=== PATIENT | male | born 1995 | race Native Hawaiian/Other Pacific Islander ===

== ENCOUNTER 2017-10-23 01:43 | Emergency (ER) | payer SELFPAY ==
[~2017-10-23] VITALS: Ht 165.1 cm; Wt 70.0 kg
[2017-10-23 01:46] VITALS: BP 111/70; PULSE 81; RESP 12; O2SAT 99
[2017-10-23] MEDS ORDERED: METOCLOPRAMIDE INJ 10 MG in SODIUM CHLORIDE 0.9% INJ 50 ML IV ONE (02:00)
[2017-10-23] MEDS ORDERED: NALOXONE HCL 0.4 MG/ML AMP IV PUSH PRN (02:00)
[2017-10-23] MEDS ORDERED: SODIUM CHLOR 0.9% 1000 ML INJ 1,000 ML IV ONE (02:00)
--- NOTE | 2017-10-23 02:04 | PD ---
HPI Chief Complaint: Alcohol/Drug Intoxication Time Seen by Provider: 01:50 Travel History International Travel<30 days: No Contact w/Intl Traveler<30days: No Traveled to known affect area: No History of Present Illness HPI 22yo M was dropped off by his friends after drinking alcohol at [employer]. As per triage note, " he was drinking at [employer] and became unresponsive at the club after drinking a bunch of alcohol". Pt was initially not responding but after sternal rub, started nodding his eye and did open his eyes. Moves all extremities but clearly very intoxicated. I did try narcan 0.4mg initially but not much response. This is likely mainly alcohol intoxication. No signs of trauma. [facility] Social History Alcohol Use: Yes Tobacco Use: Yes Substance Use: No Allergies-Medications (Allergen,Severity, Reaction): Coded Allergies: No Known Allergies (Unverified , 10/23/17) Review of Systems Except as stated in HPI: all other systems reviewed are Neg Physical Exam Narrative GENERAL: 22yo M intoxicated. SKIN: Focused skin assessment warm/dry. HEAD: Atraumatic. Normocephalic. EYES: Pupils equal and round 4mm bilaterally. ENT: No nasal bleeding or discharge. Mucous membranes pink and moist. NECK: Trachea midline. No JVD. CARDIOVASCULAR: Regular rate and rhythm. No murmur appreciated. RESPIRATORY: No accessory muscle use. Clear to auscultation. Breath sounds equal bilaterally. GASTROINTESTINAL: Abdomen soft, non-tender, nondistended. MUSCULOSKELETAL: No obvious deformities. No clubbing. No cyanosis. No edema. NEUROLOGICAL: Intoxicated but arousable with sternal rub. Moves extremities and nods head. Data Data Last Documented VS Vital Signs Date Time Temp Pulse Resp B/P (MAP) Pulse Ox O2 Delivery O2 Flow Rate FiO2 10/23/17 01:46 81 12 111/70 (84) [address] Brain W/O Iv Contrast(Rout) (10/23/17 ) Complete Blood Count With Diff (10/23/17 01:50) Basic Metabolic Panel (Bmp) (10/23/17 01:50) Alcohol (Ethanol) (10/23/17 01:50) Sodium Chlor 0.9% 1000 Ml Inj (Ns 1000 M (10/23/17 02:00) Metoclopramide Inj (Reglan Inj) (10/23/17 02:00) Chest, Single Ap (10/23/17 ) Naloxone Inj (Narcan Inj) (10/23/17 02:00) Thiamine Inj (Thiamine Inj) (10/23/17 03:15) Labs Laboratory Tests Test 10/23/17 01:55 White Blood Count 11.8 TH/MM3 Red Blood Count 5.52 MIL/MM3 Hemoglobin 14.8 GM/DL Hematocrit 44.1 % Mean Corpuscular Volume 79.9 FL Mean Corpuscular Hemoglobin 26.7 PG Mean Corpuscular Hemoglobin Concent 33.4 % Red Cell Distribution Width 14.4 % Platelet Count 286 TH/MM3 Mean Platelet Volume 6.7 FL Neutrophils (%) (Auto) 67.5 % Lymphocytes (%) (Auto) 23.7 % Monocytes (%) (Auto) 4.7 % Eosinophils (%) (Auto) 3.0 % Basophils (%) (Auto) 1.1 % Neutrophils # (Auto) 7.9 TH/MM3 Lymphocytes # (Auto) 2.8 TH/MM3 Monocytes # (Auto) 0.6 TH/MM3 Eosinophils # (Auto) 0.4 TH/MM3 Basophils # (Auto) 0.1 TH/MM3 CBC Comment DIFF FINAL Differential Comment Blood Urea Nitrogen 7 MG/DL Creatinine 0.86 MG/DL Random Glucose 124 MG/DL Calcium Level 8.1 MG/DL Sodium Level 142 MEQ/L Potassium Level 3.6 MEQ/L Chloride Level 106 MEQ/L Carbon Dioxide Level 27.3 MEQ/L Anion Gap 9 MEQ/L Estimat Glomerular Filtration Rate 111 ML/MIN Ethyl Alcohol Level 272 MG/DL [facility] Medical Decision Making Medical Screen Exam Complete: Yes Emergency Medical Condition: Yes Differential Diagnosis Alcohol intoxication vs. ICH vs. dehydration vs. polysubstance use Narrative Course 22yo M brought in by friends after drinking at [employer]. Pt was initially not responding and given narcan which didnt have much response. Pt then opened his eyes and started nodding and moving extremities. Still not talking but more responsive. Labs reviewed, WBC 11.8. H/H normal. BMP unremarkable. Blood alcohol elevated at 272. Pt had episode of vomiting here. Pt was given reglan , NS IVF and thiamine. CXR negative. CT brain showed normal examination. Will allow pt to sober up in the ED. Diagnosis Primary Impression: Alcohol intoxication Qualified Codes: F10.920 - Alcohol use, unspecified with intoxication, uncomplicated Patient Instructions: General Instructions Departure Forms: Tests/Procedures Additional Instructions: Please follow up with your primary care physician in 2-3 days. Return to the ED if symptoms worsen. Med/Other Pt SpecificInfo: No Change to Meds Disposition: 01 DISCHARGE HOME Condition: Stable Donna Mckee DO October 23, 2017 02:04
[2017-10-23 02:05] LABS: AUTOMATED NEUTROPHIL # 7.9 TH/MM3 (1.8-7.7); BASOPHIL # 0.1 TH/MM3 (0-0.2); BASOPHIL % 1.1 % (0.0-2.0); EOSINOPHIL # 0.4 TH/MM3 (0-0.4); HEMATOCRIT 44.1 % (39.0-51.0); HEMOGLOBIN 14.8 GM/DL (13.0-17.0); LYMPH % 23.7 % (9.0-44.0); LYMPHOCYTE # 2.8 TH/MM3 (1.0-4.8); MEAN CELL VOLUME 79.9 FL (80.0-100.0); MEAN CORPUSCULAR HEMOGLOBIN 26.7 PG (27.0-34.0); MEAN CORPUSCULAR HGB CONC 33.4 % (32.0-36.0); MEAN PLATELET VOLUME 6.7 FL (7.0-11.0); MONO % 4.7 % (0.0-8.0); MONOCYTE # 0.6 TH/MM3 (0-0.9); NEUT % 67.5 % (16.0-70.0); PLATELET COUNT 286 TH/MM3 (150-450); RED BLOOD COUNT 5.52 MIL/MM3 (4.50-5.90); RED CELL DISTRIBUTION WIDTH 14.4 % (11.6-17.2); WHITE BLOOD COUNT 11.8 TH/MM3 (4.0-11.0)
--- NOTE | 2017-10-23 02:21 | RADRPT ---
EXAM DATE/TIME: 10/23/2017 01:56 [facility] COMPARISON: No previous studies available for comparison. INDICATIONS : Vomiting. MEDICAL HISTORY : None. SURGICAL HISTORY : None. ENCOUNTER: Initial ACUITY: 1 day PAIN SCORE: Non-responsive. LOCATION: Bilateral chest FINDINGS: A single view of the chest demonstrates the lungs to be symmetrically aerated without evidence of mas s, infiltrate or effusion. The cardiomediastinal contours are unremarkable. Osseous structures are intact. CONCLUSION: Normal examination. London Polanco Jr., MD on October 23, 2017 at 2:19 Board Certified Radiologist. This report was verified electronically.
[2017-10-23 02:25] LABS: BICARBONATE 27.3 MEQ/L (21.0-32.0); CALCIUM 8.1 MG/DL (8.5-10.1); CREATININE 0.86 MG/DL (0.60-1.30)
[2017-10-23] MEDS ORDERED: THIAMINE INJ 100 MG in SODIUM CHLORIDE 0.9% INJ 100 ML IV ONE (03:15)
--- NOTE | 2017-10-23 03:27 | RADRPT ---
EXAM DATE/TIME: 10/23/2017 02:24 [facility] COMPARISON: No previous studies available for comparison. INDICATIONS : Altered mental status. RADIATION DOSE: 56.35 CTDIvol (mGy) MEDICAL HISTORY : Non-responsive. SURGICAL HISTORY : Non-responsive. ENCOUNTER: Initial ACUITY: 1 day PAIN SCALE: Non-responsive LOCATION: cranial TECHNIQUE: Multiple contiguous axial images were obtained of the head. Using automated exposure control and adj ustment of the mA and/or kV according to patient size, radiation dose was kept as low as reasonably a chievable to obtain optimal diagnostic quality images. DICOM format image data is available electro nically for review and comparison. FINDINGS: CEREBRUM: The ventricles are normal for age. No evidence of midline shift, mass lesion, hemorrhage or acute in farction. No extra-axial fluid collections are seen. POSTERIOR FOSSA: The cerebellum and brainstem are intact. The 4th ventricle is midline. The cerebellopontine angle i s unremarkable. EXTRACRANIAL: The visualized portion of the orbits is intact. SKULL: The calvaria is intact. No evidence of skull fracture. CONCLUSION: Normal examination. London Polanco Jr., MD on October 23, 2017 at 3:24 Board Certified Radiologist. This report was verified electronically.
[2017-10-23 04:24] VITALS: BP 117/78; PULSE 77; RESP 14; O2SAT 100
[2017-10-23 07:30] VITALS: BP 89/51; PULSE 80; RESP 14; O2SAT 100
[2017-10-23 08:00] VITALS: BP 103/51; PULSE 80; RESP 14; O2SAT 100
[2017-10-23 08:30] VITALS: BP 84/43; PULSE 78; RESP 14; O2SAT 100
[2017-10-23 09:00] VITALS: BP 110/67; PULSE 78; RESP 16; O2SAT 100
== END 2017-10-23 10:48 | disposition home or self-care (01) ==
LOC: NEPC 01:43
DX: F10.920 Alcohol use, unspecified with intoxication, uncomplicated (principal); Y90.8 Blood alcohol level of 240 mg/100 ml or more; Z72.0 Tobacco use
CPT/HCPCS: 70450; 71045; 80048; 80307; 85025; 96365; 96366; 96367; 96375; 99285; J2310; J2765; J3411; J7030